=== PATIENT | male | born 1975 | race Caucasian/White ===

== ENCOUNTER → 2016-12-12 | Outpatient (CLI) | payer MEDICAID ==
[2016-12-12 10:10] LABS: BASOPHIL % 0.2 %; EOSINOPHIL % 0.5 %; HEMATOCRIT 50.3 % (37.0-53.0); IMMATURE GRANULOCYTE % 0.4 %; LYMPHOCYTE # 4.7 K/uL (0.8-4.0); LYMPHOCYTE % 56.3 %; MCH 30.7 pg (27.0-34.0); MCHC 31.8 gm/dL (32.0-36.5); MCV 96.4 fl (83.0-98.0); MONOCYTE # 0.6 K/uL (0.0-1.0); MONOCYTE % 7.6 %; NEUTROPHIL # (ANC) 2.9 K/uL (1.4-9.0); NRBC % 0 /100WBC (0-0.00); PLATELET COUNT 98 K/uL (150-450); RBC 5.22 M/uL (4.00-6.00); RDW-CV 14.8 % (11.9-14.6); WBC 8.3 K/uL (4.0-11.0)
== END | disposition disaster alternative care site (69) ==
LOC: LBETH 12-11 16:58
PROVIDERS: Pediatrics
DX: G40.901 Epilepsy, unspecified, not intractable, with status epilepticus (principal); E03.9 Hypothyroidism, unspecified; R60.0 Localized edema; Z79.899 Other long term (current) drug therapy

== ENCOUNTER → 2017-01-16 | Outpatient (CLI) | payer MEDICAID ==
[2017-01-16 08:35] LABS: BASOPHIL % 0.5 %; EOSINOPHIL # 0.1 K/uL (0.0-0.5); EOSINOPHIL % 1.3 %; HEMATOCRIT 46.8 % (37.0-53.0); HEMOGLOBIN 15.1 g/dL (12.0-17.0); IMMATURE GRANULOCYTE # 0.1 K/uL (0.0-0.3); IMMATURE GRANULOCYTE % 1.6 %; LYMPHOCYTE # 4.5 K/uL (0.8-4.0); LYMPHOCYTE % 56.5 %; MCH 30.9 pg (27.0-34.0); MCHC 32.3 gm/dL (32.0-36.5); MCV 95.9 fl (83.0-98.0); MONOCYTE # 0.5 K/uL (0.0-1.0); MONOCYTE % 5.8 %; MPV 10.1 fl (9.4-12.4); NEUTROPHIL # (ANC) 2.7 K/uL (1.4-9.0); NEUTROPHIL % 34.3 %; NRBC % 0 /100WBC (0-0.00); PLATELET COUNT 109 K/uL (150-450); RBC 4.88 M/uL (4.00-6.00)
== END | disposition disaster alternative care site (69) ==
LOC: LBETH 01-14 17:37
PROVIDERS: Physician Assistant
DX: Z51.81 Encounter for therapeutic drug level monitoring (principal); Z79.899 Other long term (current) drug therapy